=== PATIENT | male | born 1960 | race Caucasian/White ===

== ENCOUNTER 2018-08-28 19:35 | Inpatient (IN) | payer OTHER ==
[~2018-08-28] VITALS: Ht 180.3 cm; Wt 100.3 kg
--- NOTE | 2018-08-28 19:30 | NUR ---
RECEIVED PATIENT FROM FREE STANDING, PATIENT RESTING IN BED, IV TO LEFT ARM SECURED. ROUNDS DONE, CALL LIGHT IN REACH. WILL CONTINUE TO MONITOR
[~2018-08-28 19:35] MED LIST: CYMBALTA20 MG PO; DEPO-TESTO100 MG/1 M IM; FLOMAX0.4 MG PO; GABAPENTIN300 MG PO; LEVAQUIN500 MG PO; LEVOTHYROXINE50 MCG PO; NORCO 10MG-325MG1 EA PO; Z VYVANSE PO; Z.0.AMBIEN5 MG PO; Z.0.MOBIC15 MG PO; Z.0.NEXIUM40 MG PO; Z.0.SOMA350 MG PO; Z.0.XANAX0.25 MG PO
--- OUTSIDE RECORDS SUMMARY | 2018-08-28 19:39 | XMS REPORT | Clinical Summary ---
Author Author [facility] Address Unknown Phone Unavailable Care Team Providers Care Volunteer Services Manager Name Role Phone Lucius Gonsalves MD PCP Allergies Comments Active Allergy Reactions Severity Noted Date No Known Drug Allergies 01/11/2016 Medications No known medications Active Problems Problem Noted Date Rupture of hamstring tendon 01/11/2016 Family History Medical History Relation Name Comments Heart disease Mother Relation Name Status Comments Mother Social History Date Tobacco Use Types Packs/Day Years Used Never Smoker Sex Assigned at Date Recorded Not on file Industry Job Start Date Occupation Not on file Not on file Not on file Travel End Travel History Travel Start No recent travel history available. Last Filed Vital Signs Not on file Plan of Treatment Health Maintenance Due Date Last Done Comments COLON CANCER SCREENING 02/29/2012 SHINGLES VACCINES (02/29/2012 2) INFLUENZA VACCINE 03/13/2018 Results Not on fileafter 08/27/2017 Insurance Payer Benefit Subscriber ID Type Phone Address Plan / Group AETNA AETNA PPO xxxxxxxxxx PPO OPEN CHOICE
--- OUTSIDE RECORDS SUMMARY | 2018-08-28 19:39 | XMS REPORT | Clinical Summary ---
Author Author [facility] Address Unknown Phone Unavailable Care Team Providers Care Loom Mechanic Name Role Phone PCP Unavailable Allergies Not on File Medications Not on file Active Problems Not on file Social History Date Tobacco Use Types Packs/Day Years Used Never Assessed Sex Assigned at Date Recorded Not on file Industry Job Start Date Occupation Not on file Not on file Not on file Travel End Travel History Travel Start No recent travel history available. Last Filed Vital Signs Not on file Plan of Treatment Not on file Results Not on fileafter 08/27/2017 Insurance Payer Benefit Subscriber ID Type Phone Address Plan / Group AETNA - [employer] AETNA xxxxxxxxxx HMO/POS SELECT [employer] ACCESS
[2018-08-28 20:00] VITALS: BP 124/70
[2018-08-28] MEDS ORDERED: ONDANSETRON HCL INJ 2MG/ML 2ML 2 MG/ML VIAL IV PRN (20:00)
[2018-08-28] MEDS ORDERED: HYDROMORPHONE 1MG/1ML INJ IV PRN (20:00)
--- NOTE | 2018-08-28 20:34 | NUR ---
CONSULT PLACED TO DR. WEINBERG, TALKED WITH NORIS.
[2018-08-28 21:00] VITALS: BP 124/70
[2018-08-28] MEDS: LEVOFLOXACIN 500MG/D5W 100ML 100 ML IV SCH (22:14)
[2018-08-28] MEDS: SODIUM CHLORIDE 0.9% 1000ML 1,000 ML IV SCH (22:15)
[2018-08-28] MEDS ORDERED: CARISOPRODOL 350 MG TAB PO PRN (22:30)
[2018-08-28] MEDS: METRONIDAZOLE 500MG/NS 100ML 100 ML IV SCH (22:50)
[2018-08-29] VITALS (9 sets, daily range): BP systolic 88–130; BP diastolic 51–72
[2018-08-29] MEDS: SODIUM CHLORIDE 0.9% 1000ML 1,000 ML IV SCH (05:12)
[2018-08-29] MEDS: METRONIDAZOLE 500MG/NS 100ML 100 ML IV SCH ×3 (06:01→21:45)
[2018-08-29 06:04] LABS: BASOPHILS # (AUTO) 0.1 (0.0-0.1); BASOPHILS % 0.6 % (0.0-1.0); EOSINOPHILS # (AUTO) 0.2 (0.0-0.4); HEMATOCRIT 47.8 % (38.2-49.6); HEMOGLOBIN 15.9 g/dL (14.0-18.0); LYMPHOCYTES % 17.2 % (18.0-39.1); MEAN CORPUSCULAR HEMOGLOBIN 31.8 pg (28-32); MEAN CORPUSCULAR HGB CONC 33.3 g/dL (31-35); MEAN CORPUSCULAR VOLUME 95.6 fL (81-99); MONOCYTES # (AUTO) 1.1 (0.2-0.8); MONOCYTES % 9.5 % (4.4-11.3); NEUTROPHILS # (AUTO) 8.2 (2.1-6.9); NEUTROPHILS % 70.2 % (38.7-80.0); PLATELET COUNT 206 x10e3/uL (140-360)
[2018-08-29] MEDS: HYDROMORPHONE 2MG/ML 2 MG/ML ML IV PRN ×2 (06:19→12:45)
[2018-08-29 06:38] LABS: ANION GAP 9.9 mmol/L (8-16); CALCIUM 8.5 mg/dL (8.4-10.2); CREATININE, SERUM 1.51 mg/dL (0.72-1.25); POTASSIUM 3.9 mmol/L (3.5-5.1)
--- NOTE | 2018-08-29 06:45 | NUR ---
PATIENT RESTING IN BED, COMPLAIN OF PAIN AND MEDICATED ORDERED. IV REMAIN INTACT TO HIS LEFT FOREARM. NO FURTHER DISTRESS NOTED. CALL LIGHT REMAIN IN REACH. WILL CONTINUE TO MONITOR.
--- NOTE | 2018-08-29 06:56 | NUR ---
REPORT GIVEN TO AM NURSE, ROUNDS DONE.
--- NOTE | 2018-08-29 07:00 | NUR ---
RECEIVED SHIFT CHANGE ROUNDING REPORT FROM NIGHT RN. PT DENIES NEEDS AT THIS TIME.
[2018-08-29] MEDS: PANTOPRAZOLE SOD 40 MG TABEC PO SCH (08:09)
[2018-08-29] MEDS: GABAPENTIN 300 MG CAP PO SCH ×2 (08:10→17:10)
[2018-08-29] MEDS: ALPRAZOLAM 0.5 MG TAB PO SCH (08:10)
[2018-08-29] MEDS: DULOXETINE HCL 20 MG DELAYED RELEASE PO SCH (08:10)
--- NOTE | 2018-08-29 16:39 | Consultation ---
DATE OF CONSULTATION: REFERRING PHYSICIAN: Dr. Castaneda. REASON FOR CONSULTATION: Acute diverticulitis. HISTORY OF PRESENT ILLNESS: Mr. Araujo is a very pleasant 58-year-old man who was a patient of my colleague, Dr. Starks. He has history of diverticulosis. He has never had a specific episode of diverticulitis previously. He developed left lower quadrant abdominal pain rather suddenly about 2 days ago without any fevers, chills or sweats. He had some nausea. He has passed gas but has not had a bowel movement. He continues to have some left lower quadrant pain; however, it is improving. Currently, there is no pain with pain medications. The pain was left lower quadrant, nonradiating, not exacerbated or alleviated by anything specific except for pain medicine. PAST MEDICAL HISTORY 1. BPH. 2. Kidney stones. 3. Diverticulosis. Please also note he had popcorn as well as mixed nuts prior to this episode. FAMILY HISTORY: Positive for heart disease. SURGICAL HISTORY: Includes hernia repair x2, back surgery, cholecystectomy, bowel surgery, kidney tumor. SOCIAL: No alcohol, tobacco or illicit substances. ALLERGIES: NO KNOWN DRUG ALLERGIES. MEDICATIONS: Please see MAR. REVIEW OF SYSTEMS: Twelve system review is positive for that mentioned in history of present illness, otherwise unremarkable. PHYSICAL EXAMINATION GENERAL: Patient is alert, oriented, no acute distress. HEENT: Pupils equal, round, reactive to light. NECK: Supple. LUNGS: Clear. CARDIOVASCULAR: S1, S2. ABDOMEN: Soft. Tender in the left lower quadrant with deep palpation. No rebound, guarding or mass. EXTREMITIES: No clubbing, cyanosis, edema. PSYCH: Calm, cooperative. NEUROLOGIC: Nonfocal. HEME/ONC: No bruising or adenopathy. The electronic health record is reviewed as are his [facility] notes showing acute diverticulitis by CT abdomen and pelvis performed on the at 1607. Nephrolithiasis was noted. Prior right upper quadrant small bowel resection is noted. Short segment acute diverticulitis at the distal descending, proximal sigmoid colon is noted. There is no diverticular abscess nor gross perforation nor adenopathy. There is a small fat containing supraumbilical ventral hernia without incarceration or acute complication. White count was 18.6, 86% PMN. White count today after receiving antibiotics is 11.66. ASSESSMENTS 1. Acute diverticulitis. 2. Diverticulosis. PLAN: At the current time, he is tolerating diet. He will need to take some stool softeners. He will need to follow up with Dr. Starks as an outpatient. I have instructed him that he probably should follow a typical diverticular diet and avoid seeds, nuts, popcorn, etc. Thank you very much for asking me to see Mr. Araujo. Any questions or concerns, please do not hesitate to contact me. Job#: [id number] [email or web address]
[2018-08-29] MEDS: DOCUSATE SODIUM 100 MG CAP PO SCH (17:10)
[2018-08-29] MEDS: LEVOFLOXACIN 500MG/D5W 100ML 100 ML IV SCH (20:30)
[2018-08-29] MEDS ORDERED: TAMSULOSIN HCL 0.4 MG CAP PO SCH (21:00)
[2018-08-29] MEDS: ACETAMINOPHEN/CODEINE 300MG - 30MG TAB PO PRN (21:45)
[2018-08-30] VITALS: BP 111/61
[2018-08-30 04:00] VITALS: BP 113/67
[2018-08-30 05:45] LABS: BASOPHILS # (AUTO) 0.1 (0.0-0.1); BASOPHILS % 0.9 % (0.0-1.0); EOSINOPHILS # (AUTO) 0.2 (0.0-0.4); EOSINOPHILS % 2.8 % (0.0-6.0); HEMATOCRIT 45.4 % (38.2-49.6); HEMOGLOBIN 15.2 g/dL (14.0-18.0); LYMPHOCYTES # (AUTO) 1.5 (1.0-3.2); LYMPHOCYTES % 20.7 % (18.0-39.1); MEAN CORPUSCULAR HEMOGLOBIN 32.2 pg (28-32); MEAN CORPUSCULAR HGB CONC 33.5 g/dL (31-35); MEAN CORPUSCULAR VOLUME 96.2 fL (81-99); MONOCYTES # (AUTO) 0.7 (0.2-0.8); MONOCYTES % 9.2 % (4.4-11.3); NEUTROPHILS # (AUTO) 4.9 (2.1-6.9); NEUTROPHILS % 65.9 % (38.7-80.0); PLATELET COUNT 203 x10e3/uL (140-360); RED BLOOD COUNT 4.72 x10e6/uL (4.3-5.7); RED CELL DISTRIBUTION WIDTH 12.8 % (11.7-14.4)
[2018-08-30] MEDS: METRONIDAZOLE 500MG/NS 100ML 100 ML IV SCH ×2 (05:49→13:30)
[2018-08-30 06:06] LABS: ANION GAP 8.8 mmol/L (8-16); CALCIUM 8.7 mg/dL (8.4-10.2); CREATININE, SERUM 1.38 mg/dL (0.72-1.25); POTASSIUM 3.8 mmol/L (3.5-5.1)
[2018-08-30 06:30] LABS: THYROID STIMULATING HORMONE 4.89 uIU/mL (0.350-4.940)
--- NOTE | 2018-08-30 07:10 | NUR ---
REPORT GIVEN TO ONCOMING NURSE,WALKING ROUNDS DONE.PT RESTING IN BED WITH NO S/S OF DISTRESS.
[2018-08-30] MEDS: PANTOPRAZOLE SOD 40 MG TABEC PO SCH (07:30)
[2018-08-30 07:54] VITALS: BP 123/59
[2018-08-30] MEDS: ALPRAZOLAM 0.5 MG TAB PO SCH (09:00)
[2018-08-30] MEDS: GABAPENTIN 300 MG CAP PO SCH ×2 (09:00→17:03)
[2018-08-30] MEDS: DOCUSATE SODIUM 100 MG CAP PO SCH ×2 (09:00→17:03)
[2018-08-30] MEDS: DULOXETINE HCL 20 MG DELAYED RELEASE PO SCH (09:00)
[2018-08-30 11:04] VITALS: BP 123/59
[2018-08-30 11:47] VITALS: BP 121/64
--- NOTE | 2018-08-30 12:43 | NUR ---
Rounds by Dr. Brady covering for attending and will give patient Flagyl and administer Levaquin at 6pm instead of 8pm and discharge after that
[2018-08-30] MEDS ORDERED: AUGMENTIN 875-1 EACH PO (12:45)
[2018-08-30] MEDS ORDERED: TYLENOL WITH C1 EACH PO (12:45)
[2018-08-30] MEDS: ACETAMINOPHEN/CODEINE 300MG - 30MG TAB PO PRN (13:43)
--- NOTE | 2018-08-30 16:48 | NUR ---
Patient alert and responsive, OOB and ambulating, had a BM today x2 and medicated for pain, VSS, tolerated meals and no c/o N/V, will monitor.
[2018-08-30 17:56] VITALS: BP 119/57
[2018-08-30] MEDS: LEVOFLOXACIN 500MG/D5W 100ML 100 ML IV SCH (18:18)
--- NOTE | 2018-08-30 18:18 | NUR ---
Patient completed Levaquin abx at this time per MD orders, IV line d/c'd and dressing applied, prescriptions provided to patient and discharge summary with contacts for f/u appt, patient discharged.
--- NOTE | 2018-08-31 01:07 | NUR ---
discharge summary [id number]
--- NOTE | 2018-08-31 06:39 | Discharge Summary ---
This is coverage for Dr. Lucius Castaneda. PRIMARY DIAGNOSIS: Acute diverticulitis. SECONDARY DIAGNOSES 1. Diverticulosis. 2. History of kidney stones. 3. Benign prostatic hypertrophy. 4. Pain. HOSPITAL COURSE: Mr. Araujo was admitted with 2 days of left lower quadrant pain. CT of abdomen and pelvis performed on August 28, 2018 was suggestive of an acute diverticulitis. There was no diverticular abscess. No gross perforation or adenopathy. Additional ventral hernia noted without any problems. White count was 19,000. He was admitted. After antibiotics, improvement in pain and white count, he was allowed for outpatient followup and discharge. FOLLOWUP: Follow up with PCP and Dr. Starks of gastroenterology. DIET: Diverticular diet. To avoid seeds, nuts, popcorn, etc. MEDICATIONS: As per discharge record, please see for details. ACTIVITY: As tolerated. Greater than 30 minutes in coordinating discharge care and followup. Job#: [id number] RTY
[2018-09-04] MEDS ORDERED: TESTOSTERONE CYPIONATE 100 MG/ML IM SCH (22:30)
== END 2018-08-30 18:19 | disposition home or self-care (01) | DRG 392 ==
LOC: MED/SURG 19:35
PROVIDERS: ADMIT Internal Medicine; ATTEND Internal Medicine
DX: K57.92 Diverticulitis of intestine, part unspecified, without perforation or abscess without bleeding (principal); K57.90 Diverticulosis of intestine, part unspecified, without perforation or abscess without bleeding; N40.0 Benign prostatic hyperplasia without lower urinary tract symptoms
CPT/HCPCS: 36415; 80048; 84443; 85025; J1956; J2405; J7030

== ENCOUNTER → 2018-10-03 | Day surgery (SDC) | payer OTHER ==
[2018-10-02 11:13] LABS: BASOPHILS # (AUTO) 0.1 (0.0-0.1); BASOPHILS % 0.6 % (0.0-1.0); EOSINOPHILS # (AUTO) 0.2 (0.0-0.4); EOSINOPHILS % 1.7 % (0.0-6.0); HEMATOCRIT 50.1 % (38.2-49.6); HEMOGLOBIN 16.7 g/dL (14.0-18.0); LYMPHOCYTES # (AUTO) 1.9 (1.0-3.2); MEAN CORPUSCULAR HGB CONC 33.3 g/dL (31-35); MEAN CORPUSCULAR VOLUME 93.1 fL (81-99); MONOCYTES # (AUTO) 0.6 (0.2-0.8); MONOCYTES % 6.3 % (4.4-11.3); NEUTROPHILS # (AUTO) 6.6 (2.1-6.9); NEUTROPHILS % 71.2 % (38.7-80.0); PLATELET COUNT 219 x10e3/uL (140-360); RED BLOOD COUNT 5.38 x10e6/uL (4.3-5.7); RED CELL DISTRIBUTION WIDTH 12.6 % (11.7-14.4)
[2018-10-02 11:20] LABS: INR 0.91; PROTHROMBIN TIME 13.1 seconds (11.9-14.5)
[2018-10-02 11:31] LABS: ANION GAP 13.1 mmol/L (8-16); CALCIUM 9.2 mg/dL (8.4-10.2); CREATININE, SERUM 1.28 mg/dL (0.72-1.25); POTASSIUM 4.1 mmol/L (3.5-5.1)
[2018-10-03] VITALS (8 sets, daily range): BP systolic 105–138; BP diastolic 70–98
[~2018-10-03] VITALS: Ht 177.8 cm; Wt 95.7 kg
[~2018-10-03] MED LIST changes: +AUGMENTIN 875-1 EACH PO; +BENTYL10 MG/1 ML PO; +ENTRESTO PO; +PERFLUTREN LIPID MICROSPHERES 2 ML VIAL IV ONE; +TYLENOL WITH C1 EACH PO
--- OUTSIDE RECORDS SUMMARY | 2018-10-03 07:53 | XMS REPORT | Clinical Summary ---
Author Author [facility] Address Unknown Phone Unavailable Care Team Providers Care Press Machine Feeder Name Role Phone Lucius Gonsalves MD PCP [...] Comments COLON CANCER SCREENING 02/29/2012 SHINGLES VACCINES (#1) 02/29/2012 INFLUENZA VACCINE 03/13/2018 Results Not on fileafter 10/02/2017 Insurance Payer Benefit Subscriber ID Type Phone Address Plan / Group AETNA AETNA PPO xxxxxxxxxx PPO OPEN CHOICE
--- OUTSIDE RECORDS SUMMARY | 2018-10-03 07:53 | XMS REPORT | Clinical Summary ---
Author Author [facility] Address Unknown Phone Unavailable Care Team Providers Care Sleep Technician Name Role Phone PCP Unavailable Allergies Not [...] Not on file Results Not on fileafter 10/02/2017 Insurance Payer Benefit Subscriber ID Type Phone Address Plan / Group AETNA - [employer] C[employer] AETNA xxxxxxxxxx HMO/POS SELECT US ACCESS
--- NOTE | 2018-10-03 12:50 | NUR ---
Received report from Daphne UGALDE. Reviewed medications given, orders, and procedural events. Patient awake, alert, and orientedx3. Respirations even and unlabored on room air. IV to left hand without signs or symptoms of infiltration. TR band to right wrist without signs or symptoms of bleeding. Palpable right radial pulse. No distress noted at this time. Family at bedside. Stretcher in low and locked position with siderails elevatedx2. Call light within reach.
--- NOTE | 2018-10-03 13:08 | NUR ---
Removed 3ml of air from right wrist TR band. Right wrist site appears to be without signs or symptoms of active bleeding at this time. Palpable right radial pulse. Patient tolerated well. No distress noted.
--- NOTE | 2018-10-03 13:25 | NUR ---
Removed last 3ml of air from right wrist TR band for total of 12ml of air. Right wrist site appears to be without signs or symptoms of active bleeding at this time. Palpable right radial pulse. TR band removed and dressing placed per unit protocol. Patient tolerated well no distress noted at this time.
--- NOTE | 2018-10-03 13:30 | NUR ---
Reviewed discharge instructions with patient and family. Reviewed discharge medication reconciliation, to stop Entresto per physician orders, activity restrictions, follow up appointment, and dressing care. Reviewed what signs and symtpoms to look for: when to call the doctor and when to call 911. Patient and family verbalized understanding and had no further questions at this time.
--- NOTE | 2018-10-03 13:45 | NUR ---
Patient finished getting dressed. IV to left hand removed and dressing placed per unit protocol. Dressing to left hand is clean,dry, and intact. Dressing to right wrist remains clean,dry, and intact without signs or symptoms of active bleeding at this time. 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 No distress noted at time of discharge.
--- NOTE | 2018-10-14 19:15 | Operative Report ---
DATE OF PROCEDURE: 10/03/2018 SURGEON: Arthur Gonsalves DO PROCEDURES PERFORMED: 1. Conscious sedation 35 minutes. 2. Selective coronary angiography x2. 3. Left heart catheterization. 4. Abdominal aortogram with runoff. PREPROCEDURE DIAGNOSIS: Heart failure. POSTPROCEDURE DIAGNOSIS: Nonobstructive coronary artery disease. ESTIMATED BLOOD LOSS: 20 mL. SPECIMENS REMOVED: None. PROCEDURE IN DETAIL: After informed consent was obtained, the patient was brought to the cardiac catheterization laboratory in a fasting and nonsedated state. Bilateral groins were prepped and draped in usual fashion. Lidocaine 1% was instilled over the right anterior wrist for local anesthesia. Using a micropuncture needle, the right radial artery was accessed via modified Seldinger technique and a 6-Tajik sheath was placed. Next, diagnostic coronary angiography was performed using a TIG catheter. Next, left heart catheterization was performed using modified pigtail catheter. Next, the same pigtail was taken to the abdominal aorta and abdominal aortography with bilateral iliofemoral runoff was performed. The patient tolerated procedure well with no immediate complications. The patient was transferred back to room in stable condition. PROCEDURE FINDINGS: 1. Left main coronary artery is patent without significant disease. 2. Left anterior descending coronary artery is patent with mild luminal irregularities. 3. The left circumflex coronary artery provides two obtuse marginal vessels with mild luminal irregularities. 4. Right coronary artery is a dominant vessel provides posterior descending coronary artery with mild luminal irregularities. 5. Left ventricular end-diastolic pressure is 12. There is no aortic valve gradient present upon pullback. Left ejection fraction was 55% to 60%. 6. Abdominal aorta, iliac, femoral, and popliteal vessels of bilateral lower extremities were patent. DO POORNIMA Burroughs/MODL /[id number]
== END | disposition home or self-care (01) ==
LOC: CATH LAB 07:51
PROVIDERS: ATTEND Internal Medicine Cardiovascular Disease
DX: I25.10 Atherosclerotic heart disease of native coronary artery without angina pectoris (principal); I50.21 Acute systolic (congestive) heart failure; R00.2 Palpitations; I73.9 Peripheral vascular disease, unspecified; Z88.3 Allergy status to other anti-infective agents; Z88.8 Allergy status to other drugs, medicaments and biological substances; Z01.812 Encounter for preprocedural laboratory examination; Z68.31 Body mass index [BMI] 31.0-31.9, adult; Z82.49 Family history of ischemic heart disease and other diseases of the circulatory system; Z82.3 Family history of stroke
CPT/HCPCS: 36415; 75625; 75630; 80048; 85025; 85610; 93307; 93458; C1887; Q9957

== ENCOUNTER → 2019-01-20 | Outpatient (CLI) | payer OTHER ==
[~2019-01-20] MED LIST changes: -PERFLUTREN LIPID MICROSPHERES 2 ML VIAL IV ONE
--- NOTE | 2019-01-20 15:17 | Diagnostic Imaging Report ---
EXAM: Renal Ultrasound INDICATION: Acute kidney failure. COMPARISON: Renal ultrasound 02/02/[address] abdomen/pelvis 12/30/2016. TECHNIQUE: Transverse and longitudinal images of the kidneys and bladder were obtained. FINDINGS: Right Kidney: Length: Measures 12.6 x 5.9 x 4.8 cm Appearance: Normal echogenicity. Collecting system: No hydronephrosis Stones: None Cyst/Mass: There is an apparent echogenic lesion in the midpole, measuring up to 1.7 cm with multiple punctate echogenic foci. Left Kidney: Length: Measures 11.7 x 5.8 x 4.8 cm Appearance: Normal echogenicity. Collecting system: No hydronephrosis Stones: None Cyst/Mass: None Bladder: Unremarkable in appearance. Bilateral ureteral jets are present. The prevoid volume is 202.2 cc and the post void volume is 25.2 cc. Prostate: Measures 4.0 x 2.9 x 3.7 cm. The volume is 22.3 cc. IMPRESSION: Echogenic right mid pole apparent lesion with multiple punctate echogenic foci. This may represent calcifications in the setting of prior surgery, however renal mass is possible. Renal protocol CT or MRI is suggested for further evaluation. Signed by: Dr. Sallie Flores MD on 01/20/2019 3:13 PM
== END ==
LOC: US 12:41
PROVIDERS: ATTEND Internal Medicine Nephrology
DX: N17.9 Acute kidney failure, unspecified (principal)
CPT/HCPCS: 76770; 76857

== ENCOUNTER → 2019-02-24 | Outpatient (CLI) | payer OTHER ==
--- NOTE | 2019-02-24 16:15 | Diagnostic Imaging Report ---
EXAMINATION: CHEST 2 VIEWS INDICATION: Shortness of breath COMPARISON: Chest radiograph 06/14/2016 FINDINGS: TUBES and LINES: None. LUNGS: The lungs are well inflated. No focal consolidation or pulmonary edema. Scattered subcentimeter calcified granulomas, not significantly changed from 2016. PLEURA: No pleural effusion or pneumothorax. HEART AND MEDIASTINUM: The cardiomediastinal silhouette is normal in size and contour. BONES AND SOFT TISSUES: No acute fracture or dislocation. UPPER ABDOMEN: No free air under the diaphragm. IMPRESSION: No focal pneumonia or pulmonary edema. Signed by: Sneha De La Cruz MD on 02/24/2019 4:12 PM
== END ==
LOC: RAD 15:40
PROVIDERS: ATTEND Internal Medicine Pulmonary Disease
DX: R06.02 Shortness of breath (principal)
CPT/HCPCS: 71046

== ENCOUNTER → 2019-04-01 | Outpatient (CLI) | payer OTHER ==
--- NOTE | 2019-04-01 17:36 | Diagnostic Imaging Report ---
CT of the abdomen and pelvis, without contrast, 04/01/2019. History: Acute renal failure. Comparison: 12/30/2016. Technique: Multidetector CT scanning of the abdomen and pelvis was performed from the level of the lung bases to the inferior pubic rami without intravenous or oral contrast. Coronal and sagittal multiplanar reformations were obtained. RADIATION DOSE: Total DLP: 625 mGy*cm Dose modulation, iterative reconstruction, and/or weight based adjustment of the mA/kV was utilized to reduce the radiation dose to as low as reasonably achievable. Discussion: Examination is limited without contrast. Lung bases: No visualized abnormalities. Abdomen: Multiple small calcifications are present within both kidneys, measuring up to 5 mm on the right and 3 mm on the left. There is no evidence of hydronephrosis or perinephric fat stranding. The ureters are nondilated. Cholecystectomy clips are present. The liver, biliary tree, spleen, pancreas, and adrenal glands are unremarkable. The abdominal aorta is within normal limits. There is no bowel dilatation. Suture material is noted in the distal small bowel. Multiple diverticuli are present within the distal descending and sigmoid colon without evidence of adjacent inflammation. There is no evidence of adenopathy or free fluid. Pelvis: The bladder, prostate, and seminal vesicles are unremarkable. There is no evidence of free fluid or adenopathy. Bones and soft tissues: Degenerative changes are present throughout the lumbar spine without evidence of lytic or sclerotic lesion. IMPRESSION: 1. Multiple small bilateral nonobstructing renal calculi. 2. Colonic diverticulosis without evidence of diverticulitis. 3. Status post cholecystectomy. Otherwise unremarkable noncontrast exam. Signed by: Roque Patel on 04/01/2019 5:33 PM
== END ==
LOC: CT 15:49
PROVIDERS: ATTEND Internal Medicine Nephrology
DX: N28.89 Other specified disorders of kidney and ureter (principal)
CPT/HCPCS: 74176

== ENCOUNTER → 2019-04-11 | Outpatient (CLI) | payer OTHER ==
[~2019-04-11] MED LIST changes: +IOPAMIDOL 370 MG/ML 200 ML INFUS..BTL INJ ONE; +SODIUM CHLORIDE 0.9% 500ML 500 ML ONE; +SODIUM CHLORIDE 0.9% 50ML 50 ML ONE
[2019-04-11 08:21] LABS: CREATININE, SERUM 1.37 mg/dL (0.72-1.25)
--- NOTE | 2019-04-11 09:49 | Diagnostic Imaging Report ---
CT of the chest, PE protocol, with contrast, 04/11/2019. History: Shortness of breath. Comparison: Chest x-ray 02/24/2019. Technique: Multidetector thin collimation CT scanning of the chest was performed from the level of the apices to the upper abdomen during the pulmonary arterial phase, after intravenous administration of contrast. Coronal and sagittal MIP reformations were obtained. RADIATION DOSE: Total DLP: 570 mGy*cm Dose modulation, iterative reconstruction, and/or weight based adjustment of the mA/kV was utilized to reduce the radiation dose to as low as reasonably achievable. Discussion: Chest: The pulmonary arteries are well-opacified without evidence of filling defect or vessel cut off. The main pulmonary artery is normal in size measuring 2.7 cm in diameter. The heart and aorta are normal in size. 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 The thyroid is unremarkable. There is no axillary or mediastinal adenopathy. No evidence of consolidation, mass, or effusion. Limited evaluation of the upper abdomen shows normal bilateral adrenal glands. Cholecystectomy clips are noted. The Bones and soft tissues: No acute abnormality. Mild degenerative changes are present throughout the thoracic spine. IMPRESSION: No evidence of acute pulmonary embolus or acute pulmonary abnormality. 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 Signed by: Roque Patel on 04/11/2019 9:46 AM
== END ==
LOC: CT 07:38
PROVIDERS: ATTEND Internal Medicine Pulmonary Disease
DX: R06.02 Shortness of breath (principal)
CPT/HCPCS: 36415; 71260; 82565; 84520; 96360; J7040; Q9967

== ENCOUNTER → 2019-07-30 | Outpatient (CLI) | payer OTHER ==
[~2019-07-30] MED LIST changes: +ACIPHEX20 MG PO; +BYSTOLIC10 MG PO; +CLEOCIN HCL150 MG PO; -IOPAMIDOL 370 MG/ML 200 ML INFUS..BTL INJ ONE; +PEPCID20 MG PO; -SODIUM CHLORIDE 0.9% 500ML 500 ML ONE; -SODIUM CHLORIDE 0.9% 50ML 50 ML ONE; +ZOFRAN4 MG PO
--- NOTE | 2019-07-30 13:14 | Diagnostic Imaging Report ---
TECHNIQUE: Magnetic resonance imaging of the RIGHT ANKLE was performed WITHOUT injected contrast. COMPARISON: None available. HISTORY: Posterior tibial tendon FINDINGS: LIGAMENTS: Medial Complex: Deltoid complex intact. Lateral Complex: Tibiofibular ligaments intact. Scarring of the anterior talofibular and calcaneofibular ligaments. TENDONS: Medial: Insertional tendinopathy of the posterior tibial tendon without tear. Mild hindfoot valgus. Lateral: Peroneal tendons intact. Anterior: Anterior tibial tendon intact. Achilles: Achilles tendon intact. BONES: Mild edema in the medial malleolus No acute fracture or osteonecrosis. JOINTS: Cartilage: Degenerative arthrosis of the foot and ankle, most prominent at the talonavicular joint. Other: Fluid within the joints is within physiologic limits. SOFT TISSUES: Plantar fascial thickening. 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 Multifocal degenerative arthrosis, most prominent talonavicular joint. Signed by: Dr. Lucius Fortune M.D. on 07/30/2019 1:11 PM
== END ==
LOC: MRI 09:24
PROVIDERS: ATTEND Podiatrist Foot & Ankle Surgery
DX: M76.821 Posterior tibial tendinitis, right leg (principal)

== ENCOUNTER 2019-09-14 09:09 | Inpatient (IN) | payer BC, OTHER ==
[~2019-09-14] VITALS: Ht 180.3 cm; Wt 99.6 kg
[~2019-09-14 09:09] MED LIST changes: -ACIPHEX20 MG PO; -BYSTOLIC10 MG PO; -CLEOCIN HCL150 MG PO; -PEPCID20 MG PO; -ZOFRAN4 MG PO
--- OUTSIDE RECORDS SUMMARY | 2019-09-14 09:16 | XMS REPORT ---
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 Allergies, Adverse Reactions, Alerts This patient has no known allergies or adverse reactions. Medications This patient has no known medications. Results Test Description Test Time Test Comments Text Results Atomic Results Result Comments MRI ANKLE RIGHT WO 2019-07-30 13:07:00 [place] [address] Patient Name: LYNETTE LAMBERT MR #: [id number] : 1960 Age/Sex: 59/M Req #: [id number] [facility] Physician: Ordered by: Deepali ESTEVEZ DPM Report #: [id number] Location: MRI Room/Bed: Procedure: [id number] MRI/MRI ANKLE RIGHT WO Exam Date: Exam Time: REPORT STATUS: Signed TECHNIQUE: Magnetic resonance imaging of the RIGHT ANKLE was pe rformed WITHOUT injected contrast. COMPARISON: None available. HISTORY: Posterior tibial tendon FINDINGS: LIGAMENTS: Medial Complex: Deltoid complex intact. Lateral Complex: Tibiofibular ligaments intact. Scarring of the anterior talofibular and calcaneofibular ligaments. TENDONS: Medial: Insertional tendinopathy of the posterior tibial tendon without tear. Mild hindfoot valgus. Lateral: Peroneal tendons intact. Anterior: Anterior tibial tendon intact. Achilles: Achilles tendon intact. BONES: Mild edema in the medial m alleolus No acute fracture or osteonecrosis. JOINTS: Cartilage: Degenerative arthrosis of the foot and ankle, most prominent at the talonavicular joint. Other: Fluid within the joints is within physiologic limits. SOFT TISSUES: Plantar fascial thickening. 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 Multifocal degenerative arthrosis, most prominent talonavicular joint. Signed by: Dr. Dexter Cunningham M.D. on 07/30/2019 1:11 PM Dictated By: DEXTER CUNNINGHAM MD 1311 Transcribed By: CLIFF on 07/30/19 1311 COPY TO: Deepali ESTEVEZ DPM CT CHEST W 2019-04-11 09:37:00 [place] [address] Patient Name: LYNETTE LAMBERT MR #: [id number] : 1960 Age/Sex: 59/M Req #: [id number] Adm Physician: Ordered by: CLAUDIA CRABTREE MD Report #: [id number] Location: CT Room/Bed: Procedure: [id number] CT/CT CHEST W Exam Date: 04/11/19 Exam Time: 914 REPORT STATUS: Signed CT of the chest, PE protocol, with contrast, 04/11/2019. History: Shortness of breath. Comparison: Chest x-ray 02/24/2019. Technique: Multidetector thin collimation CT scanning of the chest was performed from the level of the apices to the upper abdomen during the pulmonary arterial phase, after intravenous administration of contrast. Coronal and sagittal MIP reformations were obtained. RADIATION DOSE: Total DLP: 570 mGy*cm Dose modulation, iterative reconstruction, and/or weight based adjustment of the mA/kV was utilized to reduce the radiation dose to as low as reasonably achievable. Discussion: Chest: The pulmonary arteries are well-opacified without evidence of filling defect or vessel cut off. The main pulmonary artery is normal in size measuring 2.7 cm in diameter. The heart and aorta are normal in size. 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 The thyroid is unremarkable. There is no axillary or mediastinal adenopathy. No evidence of consolidation, mass, or effusion. Limited evaluation of the upper abdomen shows normal bilateral adrenal glands. Cholecystectomy clips are noted. The Bones and soft tissues: No acute abnormality. Mild degenerative changes are present throughout the thoracic spine. IMPRESSION: No evidence of acute pulmonary embolus or acute pulmonary abnormality. 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 Signed by: Lynette Patel on 04/11/2019 9:46 AM Dictated By: LYNETTE PATEL MD 5 Transcribed By: CLIFF on 04/11/19945 COPY TO: CLAUDIA CRABTREE MD CT ABDOMEN/PELVIS WO 2019-04-01 17:26:00 [place] [address] Patient Name: LYNETTE LAMBERT MR #: [id number] : 1960 Age/Sex: 59/M Req #: [id number] Adm Physician: Ordered by: BERNICE HIGUERA MD Report #: [id number] Location: CT Room/Bed: Procedure: [id number] CT/CT ABDOMEN/PELVIS WO Exam Date: 04/01/19 Exam Time: 1642 REPORT STATUS: Signed CT of the abdomen and pelvis, without contrast, . History: Acute renal failure. Comparison: 12/30/2016. Technique: Multidetector CT scanning of the abdomen and pelvis was performed from the level of the lung bases to the inferior pubic rami without intravenous or oral contrast. Coronal and sagittal multiplanar reformations were obtained. RADIATION DOSE: Total DLP: 625 mGy*cm Dose modulation, iterative reconstruction, and/or weight based adjustment of the mA/kV was utilized to reduce the radiation dose to as low as reasonably achievable. Discussion: Examination is limited without contrast. Lung bases: No visualized abnormalities. Abdomen: Multiple small calcifications are present within both kidneys, measuring up to 5 mm on the right and 3 mm on the left. There is no evidence of hydronephrosis or perinephric fat stranding. The ureters are nondilated. Cholecystectomy clips are present. The liver, biliary tree, spleen, pancreas, and adrenal glands are unremarkable. The abdominal aorta is within normal limits. There is no bowel dilatation. Suture material is noted in the distal small bowel. Multiple diverticuli are present within the distal descending and sigmoid colon without evidence of adjacent inflammation. There is no evidence of adenopathy or free fluid. Pelvis: The bladder, prostate, and seminal vesicles are unremarkable. There is no evidence of free fluid or adenopathy. Bones and soft tissues: Degenerative changes are present throughout the lumbar spine without evidence of lytic or sclerotic lesion. IMPRESSION: 1. Multiple small bilateral nonobstructing renal calculi. 2. Colonic diverticulosis without evidence of diverticulitis. 3. Status post cholecystectomy. Otherwise unremarkable noncontrast exam. Signed by: Lynette Patel on 04/01/2019 5:33 PM Dictated By: LYNETTE PATEL MD 173 Transcribed By: CLIFF on 04/01/191732 COPY TO: BERNICE HIGUERA MD CHEST 2 VIEWS 2019-02-24 16:09:00 [place] [address] Patient Name: LYNETTE LAMBERT MR #: [id number] : 1960 Age/Sex: 58/M Req #: [id number] Adm Physician: Ordered by: CLAUDIA CRABTREE MD Report #: [id number] Location: [facility] Room/Bed: Procedure: [id number] DX/CHEST 2 VIEWS Exam Date: 02/24/19 Exam Time: 1558 REPORT STATUS: Signed EXAMINATION: CHEST 2 VIEWS INDICATION: Shortness of breath COMPARISON: Chest radiograph 06/14/2016 FINDINGS: TUBES and LINES: None. LUNGS: The lungs are well inflated. No focal consolidation or pulmonary edema. Scattered subcentimeter calcified granulomas, not significantly changed from 2016. PLEURA: No pleural effusion or pneumothorax. HEART AND MEDIASTINUM: The cardiomediastinal silhouette is normal in size and contour. BONES AND SOFT TISSUES: No acute fracture or dislocation. UPPER ABDOMEN: No free air under the diaphragm. IMPRESSION: No focal pneumonia or pulmonary edema. Signed by: Argelia Barnett MD on 02/24/2019 4:12 PM Dictated By: ARGELIA BARNETT MD 1612 Transcribed By: CLIFF on 02/24/19 1612 COPY TO: CLAUDIA CRABTREE MD PELVIC (NON OB) ONEILL OR F/U 2019-01-20 15:07:00 [place] [address] Patient Name: LYNETTE LAMBERT MR #: [id number] : 1960 Age/Sex: 58/M Req #: [id number] Adm Physician: Ordered by: BERNICE HIGUERA MD Report #: [id number] Location: Room/Bed: Procedure: [id number] US/US PELVIC (NON OB) ONEILL OR F/U Exam Date: 01/20/19 Exam Time: 1304 REPORT STATUS: Signed EXAM: Renal Ultrasound INDICATION: Acute kidney failure. COMPARISON: Renal ultrasound 02/02/[address] abdomen/pelvis 12/30/2016. TECHNIQUE: Transverse and longitudinal images of the kidneys and bladder were obtained. FINDINGS: Right Kidney: Length: Measures 12.6 x 5.9 x 4.8 cm Appearance: Normal echogenicity. Collecting system: No hydronephrosis Stones: None Cyst/Mass: There is an apparent echogenic lesion in the midpole, measuring up to 1.7 cm with multiple punctate echogenic foci. Left Kidney: Length: Measures 11.7 x 5.8 x 4.8 cm Appearance: Normal echogenicity. Collecting s ystem: No hydronephrosis Stones: None Cyst/Mass: None Bladder: Unremarkable in appearance. Bilateral ureteral jets are present. The prevoid volume is 202.2 cc and the post void volume is 25.2 cc. Prostate: Measures 4.0 x 2.9 x 3.7 cm. The volume is 22.3 cc. IMPRESSION: Echogenic right mid pole apparent lesion with multiple punctate echogenic foci. This may represent calcifications in the setting of prior surgery, however renal mass is possible. Renal protocol CT or MRI is suggested for further evaluation. Signed by: Dr. Shanda Ruiz MD on 01/20/2019 3:13 PM Dictated By: SHANDA RUIZ MD [id number] Transcribed By: CLIFF on 01/20/19 2811 COPY TO: BERNICE HIGUERA MD RENAL RETROPERITONEAL COMP 2019-01-20 15:07:00 [place] [address] Patient Name: LYNETTE LAMBERT MR #: [id number] : 1960 Age/Sex: 58/M Req #: [id number] [facility] Physician: Ordered by: BERNICE HIGUERA MD Report #: [id number] Location: Room/Bed: Procedure: [id number] US/US RENAL RETROPERITONEAL COMP Exam Date: 01/20/19 Exam Time: 1304 REPORT STATUS: Signed EXAM: Renal Ultrasound INDICATION: Acute kidney failure. COMPARISON: Renal ultrasound 02/02/[address] abdomen/pelvis 12/30/2016. TECHNIQUE: Transverse and longitudinal images of the kidneys and bladder were obtained. FINDINGS: Right Kidney: Length: Measures 12.6 x 5.9 x 4.8 cm Appearance: Normal echogenicity. Collecting system: No hydronephrosis Stones: None Cyst/Mass: There is an apparent echogenic lesion in the midpole, measuring up to 1.7 cm with multiple punctate echogenic foci. Left Kidney: Length: Measures 11.7 x 5.8 x 4.8 cm Appearance: Normal echogenicity. Collecting s ystem: No hydronephrosis Stones: None Cyst/Mass: None Bladder: Unremarkable in appearance. Bilateral ureteral jets are present. The prevoid volume is 202.2 cc and the post void volume is 25.2 cc. Prostate: Measures 4.0 x 2.9 x 3.7 cm. The volume is 22.3 cc. IMPRESSION: Echogenic right mid pole apparent lesion with multiple punctate echogenic foci. This may represent calcifications in the setting of prior surgery, however renal mass is possible. Renal protocol CT or MRI is suggested for further evaluation. Signed by: Dr. Shanda Ruiz MD on 01/20/2019 3:13 PM Dictated By: SHANDA RUIZ MD 1513 Transcribed By: CLIFF on 01/20/19 1513 COPY TO: BERNICE HIGUERA MD
[2019-09-14] MEDS ORDERED: SODIUM CHLORIDE 0.9% 1000ML 1,000 ML IV STA (09:25)
[2019-09-14 09:54] LABS: BASOPHILS # (AUTO) 0.1 (0.0-0.1); BASOPHILS % 0.3 % (0.0-1.0); EOSINOPHILS # (AUTO) 0.1 (0.0-0.4); EOSINOPHILS % 0.6 % (0.0-6.0); HEMATOCRIT 48.5 % (38.2-49.6); HEMOGLOBIN 16.3 g/dL (14.0-18.0); LYMPHOCYTES # (AUTO) 1.7 (1.0-3.2); LYMPHOCYTES % 9.1 % (18.0-39.1); MEAN CORPUSCULAR HEMOGLOBIN 31.8 pg (28-32); MEAN CORPUSCULAR HGB CONC 33.6 g/dL (31-35); MEAN CORPUSCULAR VOLUME 94.5 fL (81-99); MONOCYTES # (AUTO) 1.4 (0.2-0.8); MONOCYTES % 7.5 % (4.4-11.3); NEUTROPHILS # (AUTO) 14.9 (2.1-6.9); NEUTROPHILS % 82.1 % (38.7-80.0); PLATELET COUNT 240 x10e3/uL (140-360); RED BLOOD COUNT 5.13 x10e6/uL (4.3-5.7); RED CELL DISTRIBUTION WIDTH 13.5 % (11.7-14.4)
[2019-09-14] MEDS ORDERED: KETOROLAC TROMETHAMINE 30 MG/ML VIAL IV ONE (10:00)
[2019-09-14] MEDS ORDERED: ONDANSETRON HCL INJ 2MG/ML 2ML 2 MG/ML VIAL IV ONE (10:00)
[2019-09-14] MEDS ORDERED: CEFTRIAXONE SOD 1 GM/NS 50 ML 50 ML IV ONE (10:00)
[2019-09-14] MEDS ORDERED: FAMOTIDINE 20 MG/2 ML VIAL IV ONE (10:00)
[2019-09-14] MEDS ORDERED: HYDROCODONE/APAP 5MG-325MG TAB PO ONE (10:00)
[2019-09-14 10:20] LABS: ALBUMIN 4.1 g/dL (3.5-5.0); ALBUMIN/GLOBULIN RATIO 1.2 (0.8-2.0); ANION GAP 17.2 mmol/L (8-16); CALCIUM 9.4 mg/dL (8.4-10.2); CREATININE, SERUM 1.26 mg/dL (0.72-1.25); POTASSIUM 4.2 mmol/L (3.5-5.1)
--- NOTE | 2019-09-14 11:29 | Diagnostic Imaging Report ---
CT SOFT TISSUE NECK W HISTORY: Swollen lymph nodes, throat pain COMPARISON: Chest CT 04/11/2019 TECHNIQUE: Axial CT images were obtained through the neck with intravenous, iodine based contrast. Coronal and sagittal reconstructions obtained from the axial data. One or more of the following dose reduction techniques were used: Automated exposure control, adjustment of the mA and/or kV according to patient size, and/or utilization of iterative reconstruction technique. Streak artifacts obscure some details. DISCUSSION: Approximately 1.5 cm mildly complex, peripherally enhancing, hypodense collection in the left palatine tonsil. Local associated mucosal edema involves the left lateral oropharynx, left hypopharynx, and left epiglottis. The left oropharynx and hypopharynx are slightly effaced. Small bilateral palatine tonsilloliths are present. Otherwise, the visualized upper aerodigestive tract is unremarkable. Mildly prominent bilateral upper jugular chain lymph nodes are likely reactive. Otherwise, no radiographically significant cervical adenopathy is seen. The thyroid gland is unremarkable. The submandibular and parotid glands are unremarkable. The major cervical vessels are unremarkable. The supervisor composing room, parapharyngeal, posterior cervical, and perivertebral spaces are unremarkable. The visualized intracranial compartment and orbits are grossly unremarkable. Bilateral maxillary antrostomy, uncinectomy, and ethmoidectomy changes are present. The paranasal sinuses are otherwise grossly clear. There are mild degenerative changes throughout the spine. The upper lungs are unremarkable. 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 IMPRESSION: 1. Approximately 1.5 cm peripherally enhancing collection in the left palatine tonsil is compatible with abscess. 2. Local mucosal edema of the left oropharynx, left hypopharynx, and left epiglottis (pharyngitis and epiglottitis). 3. Mildly prominent bilateral upper jugular chain lymph nodes are likely reactive. Signed by: Dr. Reji Patterson M.D. on 09/14/2019 11:26 AM
[2019-09-14] MEDS ORDERED: SODIUM CHLORIDE 0.9% 1000ML 1,000 ML IV SCH (12:01)
--- NOTE | 2019-09-14 12:06 | Diagnostic Imaging Report ---
EXAMINATION: CHEST 2 VIEWS INDICATION: ^cough ^[id number] ^1105 COMPARISON: CT chest dated 07/30/2019 FINDINGS: PA and lateral views TUBES and LINES: None. LUNGS: Lungs are well inflated. There is no evidence of pneumonia or pulmonary edema. PLEURA: No pleural effusion or pneumothorax. HEART AND MEDIASTINUM: The cardiomediastinal silhouette is unremarkable. BONES AND SOFT TISSUES: No acute osseous lesion. Soft tissues are unremarkable. UPPER ABDOMEN: No free air under the diaphragm. IMPRESSION: No acute thoracic abnormality. Signed by: Carson Mayes MD on 09/14/2019 12:04 PM
[2019-09-14] MEDS ORDERED: CLONIDINE HCL 0.1 MG TAB PO PRN (12:15)
[2019-09-14] MEDS ORDERED: ENALAPRILAT IV INJ 1.25 MG/ML VIAL IV PRN (12:15)
[2019-09-14] MEDS ORDERED: DIPHENHYDRAMINE HCL INJ 50 MG/ML VIAL IV PRN (12:15)
[2019-09-14] MEDS ORDERED: ZOLPIDEM TARTRATE 5 MG TAB PO PRN (12:15)
[2019-09-14] MEDS ORDERED: HYDROCORTISONE SOD SUCCINATE 100 MG VIAL IV ONE (12:30)
[2019-09-14] MEDS ORDERED: VANCOMYCIN 1GM/NS 250 ML 250 ML IV ONE (13:00)
[2019-09-14] MEDS: ONDANSETRON HCL INJ 2MG/ML 2ML 2 MG/ML VIAL IV PRN ×2 (13:42→20:56)
[2019-09-14] MEDS: HYDROMORPHONE 2MG/ML 2 MG/ML ML IV PRN ×2 (13:42→18:36)
[2019-09-14] MEDS: SODIUM CHLORIDE 0.45% 1,000 ML IV SCH ×2 (13:42→18:36)
[2019-09-14] MEDS: FAMOTIDINE 20 MG/2 ML VIAL IV SCH (17:45)
[2019-09-14] MEDS: PIPER-TAZ 3.375 GM 50 ML IV SCH (17:45)
[2019-09-14] MEDS ORDERED: IOPAMIDOL 370 MG/ML 200 ML INFUS..BTL INJ ONE (18:18)
[2019-09-14] MEDS ORDERED: SODIUM CHLORIDE 0.9% 50ML 50 ML ONE (18:18)
--- NOTE | 2019-09-14 18:18 | NUR ---
received pt from er, pt settled in bed, oriented to room at bedside
--- NOTE | 2019-09-14 18:46 | NUR ---
PT RESTING IN BED, PAIN DECREASING AFTER PAIN MED, REPORT GIVEN TO NEXT SHIFT
[2019-09-14 20:00] VITALS: BP 125/72
[2019-09-14] MEDS ORDERED: BYSTOLIC10 MG PO (20:45)
[2019-09-14] MEDS ORDERED: PEPCID20 MG PO (20:45)
[2019-09-14] MEDS ORDERED: ACIPHEX20 MG PO (20:45)
[2019-09-14] MEDS: DEXAMETHASONE SOD PHOS 10 MG/1 ML VIAL IV SCH (20:55)
[2019-09-14] MEDS: CLINDAMYCIN PHOS 900MG/ 50ML 50 ML IV SCH (20:55)
[2019-09-14 21:00] VITALS: BP 125/72
[2019-09-15] VITALS (7 sets, daily range): BP systolic 96–116; BP diastolic 56–61
[2019-09-15] MEDS: PIPER-TAZ 3.375 GM 50 ML IV SCH ×5 (00:10→23:28)
--- NOTE | 2019-09-15 01:14 | Consultation ---
DATE OF CONSULTATION: 09/14/2019 Hospital Consultation HISTORY OF PRESENT ILLNESS: I was kindly asked to see this 59-year-old man,who presents with a 3-week history of upper respiratory tract infection. Over the last 2 to 3 days, he has had progression of his symptoms and isolated pain in his left neck region. admission CT scan showed a 1.5 cm peritonsillar space abscess. PAST MEDICAL HISTORY AND PAST SURGICAL HISTORY: Reviewed in detail in the chart. LABORATORY DATA: Admission laboratory evaluation was reviewed and demonstrated elevated white blood cell count. PHYSICAL EXAMINATION: The tympanic membranes and external auditory canals were normal. Intranasal examination showed a mild S-shaped nasal septal deviation. Oral cavity examination showed edema of the left anterior tonsillar pillar. There was deep crypts within the tonsils bilaterally. The tonsils were 2+ in size. There was left-sided moderate shotty cervical adenopathy. The right side was unremarkable. ASSESSMENT: Left peritonsillar space abscess. PLAN: 1. Decadron 12 mg IV q.8 hours for 3 doses. 2. Ceftriaxone 1 g daily. 3. Cleocin 900 mg q.8 hours. Thank you very much. Bret Thomas MD [facility]/MOD[facility] /[id number]
[2019-09-15] MEDS: SODIUM CHLORIDE 0.45% 1,000 ML IV SCH (02:56)
[2019-09-15 05:17] LABS: BASOPHILS % 0.1 % (0.0-1.0); HEMATOCRIT 43.6 % (38.2-49.6); HEMOGLOBIN 14.7 g/dL (14.0-18.0); LYMPHOCYTES # (AUTO) 0.8 (1.0-3.2); LYMPHOCYTES % 4.4 % (18.0-39.1); MEAN CORPUSCULAR HGB CONC 33.7 g/dL (31-35); MEAN CORPUSCULAR VOLUME 94.8 fL (81-99); MONOCYTES # (AUTO) 0.2 (0.2-0.8); MONOCYTES % 1.3 % (4.4-11.3); NEUTROPHILS # (AUTO) 16.7 (2.1-6.9); NEUTROPHILS % 93.8 % (38.7-80.0); PLATELET COUNT 217 x10e3/uL (140-360); RED CELL DISTRIBUTION WIDTH 13.7 % (11.7-14.4)
[2019-09-15] MEDS: ONDANSETRON HCL INJ 2MG/ML 2ML 2 MG/ML VIAL IV PRN ×2 (05:35→11:37)
[2019-09-15] MEDS: CLINDAMYCIN PHOS 900MG/ 50ML 50 ML IV SCH ×3 (05:35→21:35)
[2019-09-15] MEDS: DEXAMETHASONE SOD PHOS 10 MG/1 ML VIAL IV SCH ×2 (05:35→14:00)
[2019-09-15] MEDS: HYDROMORPHONE 2MG/ML 2 MG/ML ML IV PRN ×3 (05:35→20:00)
[2019-09-15 05:37] LABS: ANION GAP 14.6 mmol/L (8-16); BLOOD UREA NITROGEN 13 mg/dL (7-26); BUN/CREATININE RATIO 12 (6-25); CARBON DIOXIDE 23 mmol/L (22-29); CHLORIDE 103 mmol/L (98-107); EST GLOMERULAR FILTRATION RATE > 60 ML/MIN (60-); GLUCOSE 144 mg/dL (74-118); POTASSIUM 4.6 mmol/L (3.5-5.1); SODIUM 136 mmol/L (136-145)
--- NOTE | 2019-09-15 07:05 | NUR ---
RCD PT AT BED PT IS ALERT AND ORIENTED PT RESTING ON BED NO SIGNS OF ANY DISTRESS NOTED IV PATENT BY SALINE FLUSH FAMILY AT BED SIDE BED LOW AND LOCKED CALL LIGHT IN REACH
[2019-09-15] MEDS: FAMOTIDINE 20 MG/2 ML VIAL IV SCH (09:00)
[2019-09-15] MEDS: CEFTRIAXONE SOD 1 GM/NS 50 ML 50 ML IV SCH (10:00)
[2019-09-15] MEDS ORDERED: DIPHENHYDRAMINE HCL 25 MG CAP PO PRN (12:00)
[2019-09-15] MEDS: TAMSULOSIN HCL 0.4 MG CAP PO SCH (12:00)
[2019-09-15] MEDS ORDERED: NON-FORMULARY MEDICATION (Dicyclomine Hcl (Bentyl) 10 MG) PO SCH (12:00)
[2019-09-15] MEDS: DULOXETINE HCL 20 MG DELAYED RELEASE PO SCH (14:00)
[2019-09-15] MEDS ORDERED: SODIUM CHLORIDE 0.9% 250ML 250 ML ONE (14:59)
[2019-09-15] MEDS: ALPRAZOLAM 0.25 MG TAB PO SCH (15:30)
[2019-09-15] MEDS: DICYCLOMINE HCL 10 MG CAP PO SCH (15:30)
[2019-09-15] MEDS ORDERED: DICYCLOMINE HCL 10 MG CAP PO SCH (17:00)
[2019-09-15] MEDS ORDERED: ALPRAZOLAM 0.25 MG TAB PO SCH (17:00)
--- NOTE | 2019-09-15 18:49 | NUR ---
PT RESTING ON BED BED SIDE REPORT GIVEN TO ONCOMING NURSE
--- NOTE | 2019-09-15 20:00 | NUR ---
PATIENT IS IN STABLE CONDITION, NO SIGNS OF DISTRESS NOTED. IS AT BEDSIDE AND PATIENT VOICES PAIN AT A LEVEL OF 8 AND WAS MEDICATED ORDERED. BED IS IN LOWEST POSITION POSSIBLE, BOTH SIDE RAILS ARE UP, CALL LIGHT WITHIN REACH, WILL CONTINUE TO MONITOR.
--- NOTE | 2019-09-15 21:00 | NUR ---
PATIENT BECAME VERY NAUSEOUS AND VOMITED IN TOILET. VOICED THAT HE NEEDED TO RECEIVE ZOFRAN BEFORE THE PAIN MEDICATION INSTEAD OF AFTER. CONTINUING TO MONITOR PATIENT.
[2019-09-16] VITALS (8 sets, daily range): BP systolic 92–112; BP diastolic 50–58
[2019-09-16] MEDS: CLINDAMYCIN PHOS 900MG/ 50ML 50 ML IV SCH ×3 (05:12→21:30)
[2019-09-16] MEDS: HYDROMORPHONE 2MG/ML 2 MG/ML ML IV PRN ×3 (05:38→21:30)
[2019-09-16] MEDS: ONDANSETRON HCL INJ 2MG/ML 2ML 2 MG/ML VIAL IV PRN ×3 (05:38→21:30)
[2019-09-16] MEDS: PIPER-TAZ 3.375 GM 50 ML IV SCH ×4 (06:17→23:06)
[2019-09-16] MEDS: PANTOPRAZOLE SOD 40 MG TABEC PO SCH (07:30)
[2019-09-16] MEDS: DICYCLOMINE HCL 10 MG CAP PO SCH ×2 (09:00→17:00)
[2019-09-16] MEDS ORDERED: TAMSULOSIN HCL 0.4 MG CAP PO SCH (09:00)
[2019-09-16] MEDS: NEBIVOLOL 10 MG TAB PO SCH (09:00)
[2019-09-16] MEDS: DULOXETINE HCL 20 MG DELAYED RELEASE PO SCH (09:00)
[2019-09-16] MEDS: ALPRAZOLAM 0.25 MG TAB PO SCH ×2 (09:00→17:00)
[2019-09-16] MEDS: TAMSULOSIN HCL 0.4 MG CAP PO SCH (09:00)
[2019-09-16] MEDS: CEFTRIAXONE SOD 1 GM/NS 50 ML 50 ML IV SCH (10:00)
--- NOTE | 2019-09-16 18:41 | NUR ---
PT RESTING ON BED BED SIDE REPORT GIVEN TO ONCOMING NURSE
[2019-09-16] MEDS: DEXAMETHASONE SOD PHOS INJ 4 MG/ML VIAL IV SCH (21:30)
--- NOTE | 2019-09-16 21:30 | NUR ---
PATIENT RESTING IN BED IN STABLE CONDITION, NO SIGNS OF DISTRESS NOTED. PATIENT VOICES PAIN AT A LEVEL OF 6 AND WAS MEDICATED ORDERED. PATIENT ALSO VOICES CONCERN ABOUT NECK ISSUES AND IS CURRENTLY TAKING NEW MEDICATION ORDER TO RESOLVE. BED IS IN LOW POSITION, SIDE RAILS ARE UP, CALL LIGHT WITHIN REACH, WILL CONTINUE TO MONITOR.
--- NOTE | 2019-09-16 23:50 | NUR ---
AFTER MIDNIGHT VITALS WERE TAKEN PATIENT REQUESTS TO NOT BE DISTURBED UNTIL 06:00. PATIENT'S VITALS ARE STABLE.
[2019-09-17] VITALS: BP 103/56
[2019-09-17] MEDS: CLINDAMYCIN PHOS 900MG/ 50ML 50 ML IV SCH (05:15)
[2019-09-17] MEDS: DEXAMETHASONE SOD PHOS INJ 4 MG/ML VIAL IV SCH ×2 (05:15→13:56)
[2019-09-17] MEDS: PIPER-TAZ 3.375 GM 50 ML IV SCH ×2 (06:40→13:02)
[2019-09-17] MEDS ORDERED: PANTOPRAZOLE SOD 40 MG TABEC PO SCH (07:30)
[2019-09-17 08:00] VITALS: BP 117/72
[2019-09-17 08:28] VITALS: BP 103/56
[2019-09-17] MEDS: ONDANSETRON HCL INJ 2MG/ML 2ML 2 MG/ML VIAL IV PRN (08:42)
[2019-09-17] MEDS: HYDROMORPHONE 2MG/ML 2 MG/ML ML IV PRN (08:44)
[2019-09-17] MEDS: NEBIVOLOL 10 MG TAB PO SCH (09:00)
[2019-09-17] MEDS: PANTOPRAZOLE SOD 40 MG TABEC PO SCH (09:51)
[2019-09-17] MEDS: DICYCLOMINE HCL 10 MG CAP PO SCH (09:52)
[2019-09-17] MEDS: TAMSULOSIN HCL 0.4 MG CAP PO SCH (09:52)
[2019-09-17] MEDS: DULOXETINE HCL 20 MG DELAYED RELEASE PO SCH (09:52)
[2019-09-17] MEDS: ALPRAZOLAM 0.25 MG TAB PO SCH (09:52)
[2019-09-17] MEDS: CEFTRIAXONE SOD 1 GM/NS 50 ML 50 ML IV SCH (09:52)
[2019-09-17 12:00] VITALS: BP 133/78
[2019-09-17] MEDS ORDERED: TYLENOL WITH C1 EACH PO (13:19)
[2019-09-17] MEDS ORDERED: ZOFRAN4 MG PO (13:19)
[2019-09-17] MEDS ORDERED: AUGMENTIN 875-1 EACH PO (13:20)
[2019-09-17] MEDS ORDERED: CLEOCIN HCL150 MG PO (13:21)
--- NOTE | 2019-09-17 14:46 | NUR ---
Patient discharged home, prescription and discharge instruction given , patient verbalized understanding, IV canula removed with tip intact, no ss of infiltration noted, at bed side, transported via wheelchair to [facility].
== END 2019-09-17 14:49 | disposition home or self-care (01) | DRG 872 ==
LOC: ER 09:09 → ERHOLD 12:01 → MED/SURG2 18:14
DX: A41.9 Sepsis, unspecified organism (principal); J39.0 Retropharyngeal and parapharyngeal abscess; I10 Essential (primary) hypertension; J34.2 Deviated nasal septum; R59.9 Enlarged lymph nodes, unspecified; F32.9 Major depressive disorder, single episode, unspecified; K21.9 Gastro-esophageal reflux disease without esophagitis
CPT/HCPCS: 36415; 70491; 71046; 80048; 80053; 83518; 83605; 85025; 86308; 87040; 87070; 99284; J0696; J1100; J1720; J1885; J2405; J2543; J3370; J7030; J7050; Q9967

== ENCOUNTER → 2020-02-27 | Outpatient (CLI) | payer BC ==
[~2020-02-27] MED LIST changes: +ACIPHEX20 MG PO; +BYSTOLIC10 MG PO; +CLEOCIN HCL150 MG PO; +IOPAMIDOL 370 MG/ML 200 ML INFUS..BTL INJ ONE; +PEPCID20 MG PO; +SODIUM CHLORIDE 0.9% 50ML 50 ML ONE; +ZOFRAN4 MG PO
[2020-02-27 10:37] LABS: CREATININE, SERUM 1.31 mg/dL (0.72-1.25)
--- NOTE | 2020-02-27 13:19 | Diagnostic Imaging Report ---
CT of the abdomen and pelvis, without and with contrast. History: Renal cell carcinoma. Comparison: CT abdomen/pelvis without contrast from 04/01/2019. Technique: Noncontrast axial images of the abdomen and pelvis are obtained. Subsequently, axial images of the abdomen were obtained in the arterial and venous phase after the administration of intravenous contrast material. Delayed phase images of the abdomen and pelvis were obtained. Coronal and sagittal multiplanar reformations were obtained. RADIATION DOSE: Total DLP: 1745.74 mGy*cm Dose modulation, iterative reconstruction, and/or weight based adjustment of the mA/kV was utilized to reduce the radiation dose to as low as reasonably achievable. FINDINGS: The visualized intrathoracic contents are unremarkable. The liver is normal in size and attenuation without evidence for focal abnormality. The gallbladder is surgically absent. There is no biliary ductal dilatation. The stomach, spleen, pancreas, and bilateral adrenal glands are unremarkable. The kidneys are normal in size and location. Approximately 4 nonobstructing stones are identified within the right kidney measuring up to 5 mm. Approximately 5 nonobstructing stones are identified within the left kidney measuring up to 3 mm. Stone burden is grossly unchanged from the prior examination. The kidneys enhance and excrete contrast material symmetrically. There is no evidence for solid renal mass or hydronephrosis. There is a single collecting system and ureter identified bilaterally. There is no evidence for ureteral filling defect, extrinsic compression, or other genitourinary pathology. The urinary bladder demonstrates no significant abnormalities. The prostate contains calcifications but is otherwise unremarkable. The abdominal aorta is normal course and caliber. The IVC is unremarkable. The bilateral renal arteries and veins are patent. Please note evaluation the bowel is limited without the use of enteric contrast material. The visualized loops of small and large bowel demonstrate no evidence of obstruction or inflammation. An anastomotic suture line is noted within the small bowel within the right abdomen. Diverticula are noted within the sigmoid and descending colon without evidence for acute diverticulitis. There is no ascites or intraperitoneal free air. No abnormally enlarged lymph nodes are identified within the abdomen or pelvis. There is a fat-containing ventral hernia present. The osseous structures demonstrate no evidence for acute fracture or destructive process. IMPRESSION: 1. In this patient with history of renal cell carcinoma, there is no evidence for residual/recurrent disease. No evidence for metastatic disease within the abdomen or pelvis. 2. Bilateral nonobstructing nephrolithiasis, unchanged from the prior examination. 3. Diverticulosis coli without evidence for acute diverticulitis. 4. Fat-containing ventral hernia. Signed by: Dr. Devaughn Fajardo MD on 02/27/2020 1:15 PM
== END ==
LOC: CT 09:20
PROVIDERS: ATTEND Urology
DX: C64.9 Malignant neoplasm of unspecified kidney, except renal pelvis (principal)
CPT/HCPCS: 36415; 74178; 82565; 84520; Q9967

== ENCOUNTER → 2020-10-07 | Outpatient (CLI) | payer BC ==
[~2020-10-07] MED LIST changes: -IOPAMIDOL 370 MG/ML 200 ML INFUS..BTL INJ ONE; -SODIUM CHLORIDE 0.9% 50ML 50 ML ONE
[2020-10-07 11:03] LABS: BASOPHILS # (AUTO) 0.1 (0.0-0.1); BASOPHILS % 0.7 % (0.0-1.0); EOSINOPHILS # (AUTO) 0.1 (0.0-0.4); EOSINOPHILS % 1.3 % (0.0-6.0); HEMOGLOBIN 15.9 g/dL (14.0-18.0); LYMPHOCYTES # (AUTO) 1.8 (1.0-3.2); LYMPHOCYTES % 18.6 % (18.0-39.1); MEAN CORPUSCULAR HEMOGLOBIN 31.7 pg (28-32); MEAN CORPUSCULAR HGB CONC 33.8 g/dL (31-35); MEAN CORPUSCULAR VOLUME 93.8 fL (81-99); MONOCYTES # (AUTO) 0.7 (0.2-0.8); MONOCYTES % 6.8 % (4.4-11.3); NEUTROPHILS % 72.1 % (38.7-80.0); PLATELET COUNT 235 x10e3/uL (140-360); RED BLOOD COUNT 5.01 x10e6/uL (4.3-5.7); RED CELL DISTRIBUTION WIDTH 13.1 % (11.7-14.4)
[2020-10-07 11:29] LABS: ALBUMIN/GLOBULIN RATIO 1.3 (0.8-2.0); ANION GAP 11.1 mmol/L (8-16); CALCIUM 8.9 mg/dL (8.4-10.2); CREATININE, SERUM 1.25 mg/dL (0.72-1.25); POTASSIUM 4.1 mmol/L (3.5-5.1)
[2020-10-07 11:49] LABS: FREE T4 (FREE THYROXINE) 0.74 ng/dL (0.8-1.8); THYROID STIMULATING HORMONE 2.733 uIU/mL (0.350-4.940)
== END ==
LOC: NM 09:40
PROVIDERS: ATTEND Internal Medicine Pulmonary Disease
DX: R06.02 Shortness of breath (principal); R53.83 Other fatigue
CPT/HCPCS: 36415; 71250; 78597; 80053; 83880; 84439; 84443; 85025; 85379; A9540

== ENCOUNTER → 2020-10-27 | Outpatient (CLI) | payer BC | LOC: MRI 09:54 | PROVIDERS: ATTEND Family Medicine | DX: M75.102 Unspecified rotator cuff tear or rupture of left shoulder, not specified as traumatic (principal) ==

== ENCOUNTER 2024-05-29 20:07 | Emergency (ER) | payer BC ==
[~2024-05-29] VITALS: Ht 177.8 cm; Wt 92.5 kg
[2024-05-29 20:25] VITALS: PULSE 88; RESP 16; TEMP 98.4
[2024-05-29] MEDS: IBUPROFEN 600 MG TAB PO STA (21:10)
[2024-05-29] MEDS: TETANUS/DIPHTHERIA TOX ADULT 0.5 ML SYR IM ONE (21:11)
[2024-05-29] MEDS: ACETAMINOPHEN 325 MG TAB PO ONE (21:18)
[2024-05-29] MEDS ORDERED: ACETAMINOPHEN 325 MG TAB ONE (21:20)
[2024-05-29] MEDS ORDERED: CEPHALEXIN500 MG PO (22:32)
[2024-05-29] MEDS: BACITRACIN ZINC 0.9GM TP ONE (22:36)
[2024-05-29 22:45] VITALS: BP 139/70; PULSE 78; RESP 19; O2SAT 99
[2024-05-30] MEDS: BUPIVACAINE HCL 0.25% 10ML MPF VIAL INJ ONE (00:18)
== END 2024-05-29 22:48 | disposition home or self-care (01) ==
LOC: ER 20:10
DX: S61.012A Laceration without foreign body of left thumb without damage to nail, initial encounter (principal); W29.8XXA Contact with other powered hand tools and household machinery, initial encounter; Y92.89 Other specified places as the place of occurrence of the external cause; I10 Essential (primary) hypertension; F41.9 Anxiety disorder, unspecified; F32.A Depression, unspecified; Z85.89 Personal history of malignant neoplasm of other organs and systems
CPT/HCPCS: 90471; 90714; 99283

== ENCOUNTER 2024-10-10 17:12 | Inpatient (IN) | payer BC ==
[~2024-10-10] VITALS: Ht 177.8 cm; Wt 92.5 kg
[~2024-10-10 17:12] MED LIST changes: +CEPHALEXIN500 MG PO
[2024-10-10 17:34] VITALS: RESP 22; TEMP 98.3
[2024-10-10] MEDS ORDERED: DICYCLOMINE HCL 20 MG/2 ML VIAL IM ONE (17:36)
[2024-10-10] MEDS: ONDANSETRON HCL INJ 2MG/ML 2ML 2 MG/ML VIAL IV STA ×2 (17:45→19:31)
[2024-10-10] MEDS: DICYCLOMINE HCL 20 MG/2 ML VIAL IM ONE (17:45)
[2024-10-10] MEDS: SODIUM CHLORIDE 0.9% 1000ML 1,000 ML IV SCH (17:45)
[2024-10-10 17:49] LABS: BASOPHILS % 0.2 % (0.0-1.0); HEMATOCRIT 55.4 % (38.2-49.6); HEMOGLOBIN 19.5 g/dL (14.0-18.0); LYMPHOCYTES # (AUTO) 1.1 (1.0-3.2); LYMPHOCYTES % 4.4 % (18.0-39.1); MEAN CORPUSCULAR HEMOGLOBIN 32.9 pg (28-32); MEAN CORPUSCULAR HGB CONC 35.2 g/dL (31-35); MEAN CORPUSCULAR VOLUME 93.4 fL (81-99); MONOCYTES # (AUTO) 1.5 (0.2-0.8); MONOCYTES % 5.9 % (4.4-11.3); NEUTROPHILS # (AUTO) 22.2 (2.1-6.9); NEUTROPHILS % 89.1 % (38.7-80.0); PLATELET COUNT 270 x10e3/uL (140-360); RED BLOOD COUNT 5.93 x10e6/uL (4.3-5.7); RED CELL DISTRIBUTION WIDTH 13.2 % (11.7-14.4); WHITE BLOOD COUNT 24.97 x10e3/uL (4.8-10.8)
[2024-10-10] MEDS: Morphine 4mg INJECTION 4 MG/ML INJ IV STA (17:51)
[2024-10-10] MEDS: SODIUM CHLORIDE 0.9% 1000ML 1,000 ML IV STA (17:54)
[2024-10-10] MEDS: ACETAMINOPHEN 325 MG TAB PO STA (17:54)
[2024-10-10 18:10] LABS: ALBUMIN 4.6 g/dL (3.5-5.0); ALBUMIN/GLOBULIN RATIO 1.2 (0.8-2.0); ANION GAP 19.4 mmol/L (8-16); BILIRUBIN,TOTAL 1.8 mg/dL (0.2-1.2); CALCIUM 10.1 mg/dL (8.4-10.2); POTASSIUM 4.4 mmol/L (3.5-5.1); TOTAL PROTEIN 8.3 g/dL (6.5-8.1)
[2024-10-10 18:15] LABS: CORONAVIRUS COVID-19 AG NEGATIVE (NEGATIVE); INFLUENZA A AG NEGATIVE (NEGATIVE); INFLUENZA B AG NEGATIVE (NEGATIVE)
[2024-10-10] MEDS ORDERED: IOPAMIDOL 370 MG/ML 100 ML INFUS..BTL INJ ONE (18:23)
[2024-10-10 19:05] VITALS: PULSE 105
[2024-10-10 20:00] VITALS: BP 139/89; PULSE 102; RESP 18; TEMP 98.7; O2SAT 97; O2SAT 99
[2024-10-10] MEDS ORDERED: LIDOCAINE VISC 2% SOLN 15 ML UDC PO STA (20:35)
[2024-10-10] MEDS ORDERED: MAGNESIUM/ALUMINUM/SIMETHICONE 30 ML UDC PO STA (20:35)
[2024-10-10] MEDS ORDERED: BELLADONNA ALK/PHENOBARBITAL 5 ML UDC PO ONE (20:45)
[2024-10-10 20:50] LABS: TROPONIN I 0.006 ng/mL (0-0.300)
[2024-10-10 21:41] VITALS: BP 112/71; PULSE 79; RESP 18; TEMP 98.7; O2SAT 95
[2024-10-10 21:43] VITALS: BP 112/71; PULSE 79; RESP 18; TEMP 98.7; O2SAT 95
[2024-10-10] MEDS: ONDANSETRON HCL INJ 2MG/ML 2ML 2 MG/ML VIAL IV PRN (23:13)
[2024-10-10] MEDS: Morphine 4mg INJECTION 4 MG/ML INJ IV PRN (23:13)
[2024-10-11] VITALS (8 sets, daily range): BP systolic 105–138; BP diastolic 74–86; PULSE 75–98; RESP 16–18; TEMP 98–98.5; O2SAT 95–98
[2024-10-11] MEDS: SODIUM CHLORIDE 0.9% 1000ML 1,000 ML IV SCH (01:29)
[2024-10-11 08:03] LABS: BASOPHILS % 0.2 % (0.0-1.0); EOSINOPHILS % 0.1 % (0.0-6.0); HEMATOCRIT 51.2 % (38.2-49.6); HEMOGLOBIN 17.5 g/dL (14.0-18.0); LYMPHOCYTES % 7.1 % (18.0-39.1); MEAN CORPUSCULAR HEMOGLOBIN 32.6 pg (28-32); MEAN CORPUSCULAR HGB CONC 34.2 g/dL (31-35); MEAN CORPUSCULAR VOLUME 95.3 fL (81-99); MONOCYTES # (AUTO) 1.1 (0.2-0.8); MONOCYTES % 8.2 % (4.4-11.3); NEUTROPHILS # (AUTO) 11.7 (2.1-6.9); NEUTROPHILS % 84.2 % (38.7-80.0); PLATELET COUNT 225 x10e3/uL (140-360); RED BLOOD COUNT 5.37 x10e6/uL (4.3-5.7); RED CELL DISTRIBUTION WIDTH 13.7 % (11.7-14.4); WHITE BLOOD COUNT 13.92 x10e3/uL (4.8-10.8)
[2024-10-11 08:42] LABS: ALBUMIN 3.6 g/dL (3.5-5.0); ALBUMIN/GLOBULIN RATIO 1.1 (0.8-2.0); ANION GAP 13.9 mmol/L (8-16); BILIRUBIN,TOTAL 2.4 mg/dL (0.2-1.2); CALCIUM 8.5 mg/dL (8.4-10.2); CREATININE, SERUM 1.6 mg/dL (0.72-1.25); POTASSIUM 3.9 mmol/L (3.5-5.1); TOTAL PROTEIN 6.8 g/dL (6.5-8.1)
[2024-10-11 08:47] LABS: TROPONIN I 0.056 ng/mL (0-0.300)
[2024-10-11 10:33] LABS: CLARITY,URINE SL CLOUDY (CLEAR); COLOR,URINE YELLOW (YELLOW); LEUKOCYTE ESTERASE ,URINE NEGATIVE (NEGATIVE); NITRITE,URINE NEGATIVE (NEGATIVE); PH,URINE 5.5 (5 - 7); PROTEIN,URINE DIPSTICK 2+ (NEGATIVE)
[2024-10-11 10:34] LABS: BILIRUBIN,URINE SMALL (NEGATIVE); GLUCOSE, URINE NEGATIVE (NEGATIVE); KETONES,URINE NEGATIVE (NEGATIVE); URINE UROBILINOGEN 0.2 mg/dL (0.2 - 1)
[2024-10-11 10:42] LABS: BACTERIA,URINE RARE /HPF; EPITHELIAL CELLS,URINE FEW /LPF; RBC,URINE 0-5 /HPF (0-5); WBC,URINE (MAN) 0-5 /HPF (0-5)
[2024-10-11 10:43] LABS: MUCUS,URINE MODERATE
[2024-10-11] MEDS ORDERED: DICYCLOMINE HCL 10 MG CAP PO SCH (14:30)
[2024-10-11] MEDS ORDERED: CARISOPRODOL 350 MG TAB PO SCH (14:30)
[2024-10-11] MEDS ORDERED: POLYETHYLENE GLYCOL 3350 17 GM PACK PO PRN (14:45)
[2024-10-11] MEDS ORDERED: HYDRALAZINE HCL 20 MG/ML VIAL IV PRN (14:45)
[2024-10-11 16:53] LABS: CREATINE KINASE 172 IU/L (30-200)
[2024-10-11 16:59] LABS: TROPONIN I < 0.001 ng/mL (0-0.300)
[2024-10-11] MEDS: FAMOTIDINE 20 MG TAB PO SCH (17:00)
[2024-10-11] MEDS: DOCUSATE SODIUM 100 MG CAP PO SCH (17:00)
[2024-10-11] MEDS: ALPRAZOLAM 0.5 MG TAB PO SCH (17:00)
[2024-10-12] VITALS (11 sets, daily range): BP systolic 109–135; BP diastolic 65–83; PULSE 73–99; RESP 16–19; TEMP 97.9–99.4; O2SAT 97–100
[2024-10-12 05:48] LABS: BASOPHILS % 0.5 % (0.0-1.0); EOSINOPHILS # (AUTO) 0.2 (0.0-0.4); EOSINOPHILS % 2.9 % (0.0-6.0); HEMATOCRIT 45.2 % (38.2-49.6); HEMOGLOBIN 14.8 g/dL (14.0-18.0); LYMPHOCYTES # (AUTO) 1.5 (1.0-3.2); LYMPHOCYTES % 18.3 % (18.0-39.1); MEAN CORPUSCULAR HEMOGLOBIN 32.5 pg (28-32); MEAN CORPUSCULAR HGB CONC 32.7 g/dL (31-35); MEAN CORPUSCULAR VOLUME 99.1 fL (81-99); MONOCYTES # (AUTO) 0.8 (0.2-0.8); MONOCYTES % 10.5 % (4.4-11.3); NEUTROPHILS # (AUTO) 5.4 (2.1-6.9); NEUTROPHILS % 67.4 % (38.7-80.0); PLATELET COUNT 203 x10e3/uL (140-360); RED BLOOD COUNT 4.56 x10e6/uL (4.3-5.7); WHITE BLOOD COUNT 7.97 x10e3/uL (4.8-10.8)
[2024-10-12 06:21] LABS: ALBUMIN 3.1 g/dL (3.5-5.0); ALBUMIN/GLOBULIN RATIO 1.1 (0.8-2.0); ANION GAP 13.9 mmol/L (8-16); CALCIUM 7.9 mg/dL (8.4-10.2); CREATININE, SERUM 1.38 mg/dL (0.72-1.25); MAGNESIUM 1.9 MG/DL (1.3-2.1); PHOSPHORUS 1.9 MG/DL (2.3-4.7); POTASSIUM 3.9 mmol/L (3.5-5.1); TOTAL PROTEIN 5.8 g/dL (6.5-8.1)
[2024-10-12] MEDS: PANTOPRAZOLE SOD 40 MG TABEC PO SCH (09:00)
[2024-10-12] MEDS: TAMSULOSIN HCL 0.4 MG CAP PO SCH (09:00)
[2024-10-12] MEDS ORDERED: LISDEXAMFETAMINE DIMESYLATE 60 MG PO SCH (09:00)
[2024-10-12] MEDS: DULOXETINE HCL 20 MG DELAYED RELEASE PO SCH (09:00)
[2024-10-12] MEDS: NEBIVOLOL 10 MG TAB PO SCH (09:00)
[2024-10-13] VITALS (10 sets, daily range): BP systolic 117–146; BP diastolic 65–83; PULSE 66–81; RESP 17–20; TEMP 98–98.7; O2SAT 95–100
[2024-10-14] VITALS: BP 101/50; PULSE 87; RESP 20; TEMP 98.6; O2SAT 95
[2024-10-14 04:00] VITALS: BP 126/70; PULSE 71; RESP 20; TEMP 98.7; O2SAT 95
[2024-10-14 05:48] LABS: BASOPHILS # (AUTO) 0.1 (0.0-0.1); BASOPHILS % 0.5 % (0.0-1.0); EOSINOPHILS # (AUTO) 0.2 (0.0-0.4); EOSINOPHILS % 1.9 % (0.0-6.0); HEMATOCRIT 41.7 % (38.2-49.6); HEMOGLOBIN 14.4 g/dL (14.0-18.0); LYMPHOCYTES # (AUTO) 1.5 (1.0-3.2); LYMPHOCYTES % 15.2 % (18.0-39.1); MEAN CORPUSCULAR HGB CONC 34.5 g/dL (31-35); MEAN CORPUSCULAR VOLUME 95.4 fL (81-99); MONOCYTES # (AUTO) 0.9 (0.2-0.8); MONOCYTES % 9.3 % (4.4-11.3); NEUTROPHILS % 72.7 % (38.7-80.0); PLATELET COUNT 204 x10e3/uL (140-360); RED BLOOD COUNT 4.37 x10e6/uL (4.3-5.7); WHITE BLOOD COUNT 9.58 x10e3/uL (4.8-10.8)
[2024-10-14 06:34] LABS: ANION GAP 13.3 mmol/L (8-16); CALCIUM 8.4 mg/dL (8.4-10.2); CREATININE, SERUM 1.09 mg/dL (0.72-1.25)
[2024-10-14 06:38] LABS: POTASSIUM 3.3 mmol/L (3.5-5.1)
[2024-10-14 07:40] VITALS: PULSE 80; RESP 18; O2SAT 93
[2024-10-14 08:20] VITALS: BP 129/82; PULSE 67; RESP 20; TEMP 97.9; O2SAT 99
[2024-10-14 09:04] VITALS: BP 129/82
[2024-10-14] MEDS ORDERED: AUGMENTIN 500-1 EACH PO (14:02)
== END 2024-10-14 15:00 | disposition home or self-care (01) | DRG 872 ==
LOC: ER 17:43 → ERHOLD 19:40 → MED/SURG2 20:09
PROVIDERS: ADMIT Internal Medicine; ATTEND Internal Medicine
DX: A41.9 Sepsis, unspecified organism (principal); E87.21 Acute metabolic acidosis; K56.600 Partial intestinal obstruction, unspecified as to cause; A04.9 Bacterial intestinal infection, unspecified; E87.1 Hypo-osmolality and hyponatremia; K56.7 Ileus, unspecified; N17.9 Acute kidney failure, unspecified; R65.20 Severe sepsis without septic shock; I12.9 Hypertensive chronic kidney disease with stage 1 through stage 4 chronic kidney disease, or unspecified chronic kidney disease; N18.30 Chronic kidney disease, stage 3 unspecified; K57.30 Diverticulosis of large intestine without perforation or abscess without bleeding; N20.0 Calculus of kidney; N40.0 Benign prostatic hyperplasia without lower urinary tract symptoms; K43.9 Ventral hernia without obstruction or gangrene; F41.8 Other specified anxiety disorders; Z68.29 Body mass index [BMI] 29.0-29.9, adult; Z71.3 Dietary counseling and surveillance; Z90.49 Acquired absence of other specified parts of digestive tract; Z85.528 Personal history of other malignant neoplasm of kidney; Z79.899 Other long term (current) drug therapy
CPT/HCPCS: 36415; 74019; 74022; 74177; 80048; 80053; 81001; 82550; 83605; 83735; 84100; 84484; 85025; 87040; 87086; 94799; 99284; J2270; J2405; J2543; J7030; Q9967

== ENCOUNTER → 2025-02-04 | Day surgery (SDC) | payer BC ==
[2025-01-28 16:15] LABS: BASOPHILS # (AUTO) 0.1 (0.0-0.1); BASOPHILS % 0.8 % (0.0-1.0); EOSINOPHILS # (AUTO) 0.3 (0.0-0.4); EOSINOPHILS % 2.8 % (0.0-6.0); HEMATOCRIT 52.5 % (38.2-49.6); HEMOGLOBIN 17.6 g/dL (14.0-18.0); LYMPHOCYTES # (AUTO) 2.2 (1.0-3.2); LYMPHOCYTES % 18.9 % (18.0-39.1); MEAN CORPUSCULAR HEMOGLOBIN 32.2 pg (28-32); MEAN CORPUSCULAR HGB CONC 33.5 g/dL (31-35); MEAN CORPUSCULAR VOLUME 96.2 fL (81-99); MONOCYTES # (AUTO) 0.7 (0.2-0.8); MONOCYTES % 5.8 % (4.4-11.3); NEUTROPHILS # (AUTO) 8.4 (2.1-6.9); NEUTROPHILS % 71.4 % (38.7-80.0); PLATELET COUNT 292 x10e3/uL (140-360); RED BLOOD COUNT 5.46 x10e6/uL (4.3-5.7); RED CELL DISTRIBUTION WIDTH 13.3 % (11.7-14.4); WHITE BLOOD COUNT 11.74 x10e3/uL (4.8-10.8)
[2025-01-28 16:42] LABS: ANION GAP 13.4 mmol/L (8-16); CALCIUM 9.1 mg/dL (8.4-10.2); CREATININE, SERUM 1.49 mg/dL (0.72-1.25); POTASSIUM 4.4 mmol/L (3.5-5.1)
[~2025-02-04] MED LIST changes: +ACETAMINOPHEN 1000 MG/100 ML 100 ML IV ONE; +AUGMENTIN 500-1 EACH PO; +FENTANYL CITRATE/PF 100MCG/2 ML INJ ONE; +HYDROMORPHONE 2MG/ML ONE; +MIDAZOLAM HCL 2 MG/2 ML VIAL ONE; +PROPOFOL IV EMULSION 10 MG/ML 20 ML VIAL ONE; +ROCURONIUM BROMIDE 1 ML IV ONE; +SUGAMMADEX SODIUM 200 MG/2 ML VIAL IV ONE; +TESTOSTERONE SQ; +VASOPRESSIN INJ 20 UNIT/ML VIAL ONE; +VIAGRA25 MG PO
[2025-02-04] MEDS: LACTATED RINGER'S 1,000 ML ONE (06:54)
[2025-02-04] MEDS: SCOPOLAMINE 1 MG PATCH ONE (07:30)
[2025-02-04 11:53] VITALS: BP 116/63; PULSE 83; RESP 18; O2SAT 96
== END | disposition home or self-care (01) ==
LOC: OR 06:15
PROVIDERS: ATTEND Surgery
DX: K43.6 Other and unspecified ventral hernia with obstruction, without gangrene (principal); I10 Essential (primary) hypertension; N40.0 Benign prostatic hyperplasia without lower urinary tract symptoms; Z01.810 Encounter for preprocedural cardiovascular examination; Z01.812 Encounter for preprocedural laboratory examination; Z01.818 Encounter for other preprocedural examination
CPT/HCPCS: 36415; 49616; 71046; 80048; 85025; 93005; C1781; J0131; J1171; J2250; J2704; J3010; J7121